=== PATIENT | female | born 1995 | race Caucasian/White ===

== ENCOUNTER 2018-03-10 04:35 | Emergency (ER) | payer OTHER ==
[2018-03-10] MEDS: ACETAMINOPHEN 325 MG TAB PO (07:18)
== END 2018-03-10 08:52 | disposition home or self-care (01) ==
LOC: M ED 04:35
DX: S09.90XA Unspecified injury of head, initial encounter (principal); S40.812A Abrasion of left upper arm, initial encounter; S80.811A Abrasion, right lower leg, initial encounter; Y04.8XXA Assault by other bodily force, initial encounter; Y92.59 Other trade areas as the place of occurrence of the external cause; Y93.9 Activity, unspecified; Y99.9 Unspecified external cause status; Z79.3 Long term (current) use of hormonal contraceptives; Z88.0 Allergy status to penicillin
CPT/HCPCS: 70450

== ENCOUNTER → 2019-05-01 | Outpatient (REF) | payer OTHER ==
[~2019-05-01] MED LIST: BIRTH CONTROL
[2019-05-01 23:01] LABS: CHLAMYDIA DNA AMPLIFICATION NEGATIVE (NEGATIVE); GC DNA AMPLIFICATION POSITIVE (NEGATIVE)
== END ==
LOC: M LAB REF 09:16
PROVIDERS: ATTEND Nurse Practitioner Family
DX: Z11.3 Encounter for screening for infections with a predominantly sexual mode of transmission (principal)

== ENCOUNTER → 2020-06-26 | Outpatient (REF) | payer OTHER ==
[2020-06-26 17:24] LABS: HEMOGLOBIN 12.2 g/dl (12.0-15.5); MEAN CORPUSCULAR HEMOGLOBIN 30.6 pg (27.0-33.0); MEAN CORPUSCULAR HGB CONC 33.9 g/dl (32.0-36.5); MEAN CORPUSCULAR VOLUME 90.2 fl (80.0-96.0); PLATELET COUNT, AUTOMATED 227 10^3/uL (150-450); RED BLOOD COUNT 3.99 10^6/uL (4.00-5.40); WHITE BLOOD COUNT 8.8 10^3/uL (4.0-10.0)
[2020-06-26 18:33] LABS: HEPATITIS C VIRUS ABY INDEX 0.1 INDEX (<0.8); HIV 1&2 SCREEN CENTAUR NEGATIVE (NEGATIVE)
== END ==
LOC: M PLALAB 15:47
PROVIDERS: ATTEND Advanced Practice Midwife
DX: Z34.01 Encounter for supervision of normal first pregnancy, first trimester (principal)

== ENCOUNTER → 2020-06-27 | Outpatient (CLI) | payer OTHER ==
--- NOTE | 2020-07-02 14:58 | REP ---
FIRST TRIMESTER ULTRASOUND HISTORY: Dating. Rule out uterine and ovarian anomaly. TECHNIQUE: Real-time ultrasound evaluation of the pelvis is performed utilizing transabdominal and endovaginal technique. FINDINGS: There is a single live intrauterine with an estimated gestational age of 8 weeks 3 days based on a crown-rump length of 19 mm, estimated date of confinement (EDC) 01/24/2021. heart rate is 174 beats per minute. Gestational sac has somewhat irregular margins. A normal yolk sac is not visualized. There is an irregular echogenic area posterior to the fetus within the amniotic sac, which probably represents an echogenic yolk sac. Some studies have associated this finding with pending nonviability of the fetus. Therefore, a follow-up scan is recommended in 7-14 days. Multiple septations are seen within the gestational sac, some thin and some are somewhat thickened. I suspect this may represent separation of the chorion and amnion with intervening septated fibrin strands possibly from a prior hemorrhage. There is a subchorionic hemorrhage inferior to the gestational sac measuring 1.4 x 2.0 x 1.0 cm. Right ovary measures 4.3 x 3.2 x 2.5 cm. There is a cystic structure in the right ovary 2.5 x 2.2 x 2.0 cm and a hypoechoic structure, which measures 2.0 x 2.2 x 1.0 cm. These likely represent follicles and corpus luteum. Left ovary measures 3.3 x 3.1 x 2.5 cm. Echogenic structure in the left ovary measures 2.3 x 1.9 x 1.8 cm. This probably represents a dermoid. MTDD
== END ==
LOC: M WHC 08:16
PROVIDERS: ATTEND Advanced Practice Midwife
DX: Z34.01 Encounter for supervision of normal first pregnancy, first trimester (principal)

== ENCOUNTER → 2020-07-25 | Outpatient (REF) | payer OTHER | LOC: M SFHCWAGY 17:23 | PROVIDERS: ATTEND Advanced Practice Midwife | DX: Z34.91 Encounter for supervision of normal pregnancy, unspecified, first trimester (principal); Z3A.11 11 weeks gestation of pregnancy ==

== ENCOUNTER → 2020-08-24 | Outpatient (REF) | payer OTHER | LOC: M SFHCWAGY 13:58 | PROVIDERS: ATTEND Advanced Practice Midwife | DX: N39.0 Urinary tract infection, site not specified (principal) ==

== ENCOUNTER → 2020-09-24 | Outpatient (CLI) | payer OTHER ==
--- NOTE | 2020-09-24 11:38 | REP ---
INDICATION: ANATOMY COMPARISON: 06/27/2020 TECHNIQUE: Transabdominal obstetrical ultrasound with color Doppler evaluation. FINDINGS: Examination demonstrates a single live intrauterine in transverse presentation. motion is identified by technologist. Placenta is noted anterior and grade 0 without evidence for placenta previa or abruption. Amniotic fluid volume is normal. Cervix measures 3.1 cm in length and appears closed.. Gestational age by LMP 20 weeks 2 days with ZUHAIR 02/09/2021. Gestational age by current measurements 20 weeks 2 days with ZUHAIR 02/09/2021. FHR equals 153 beats per minute. BPD: 4.8 cm 20 weeks 4 days HC: 18.1 cm 20 weeks 4 days AC: 15.0 cm 20 weeks 2 days FL: 3.2 cm 20 weeks 0 days HL: 3.0 cm 20 weeks 0 days HC/AC: 1.20 Estimated weight 338 grams (40thpercentile). Anatomical assessment demonstrates normal structures including cranium, choroid plexus, cavum, cerebellum/posterior fossa, lungs, four-chamber heart/ventricular outflow tracts, diaphragm, stomach, cord insertion/three-vessel cord, kidneys/bladder, spine, and extremities. IMPRESSION: 1. Single live intrauterine in transverse lie demonstrating appropriate estimated weight and growth. 2. Limited evaluation of the facial features due to positioning. Remainder of the anatomical assessment is complete and normal. <Electronically signed by Ru Ibanez > 09/24/20 [id number]
== END ==
LOC: M WHC 08:49
PROVIDERS: ATTEND Advanced Practice Midwife
DX: Z34.92 Encounter for supervision of normal pregnancy, unspecified, second trimester (principal); Z3A.20 20 weeks gestation of pregnancy

== ENCOUNTER → 2020-10-26 | Outpatient (CLI) | payer OTHER ==
--- NOTE | 2020-10-27 04:12 | REP ---
INDICATION: F/U ANATOMY COMPARISON: 09/24/2020 TECHNIQUE: Transabdominal obstetrical ultrasound with color Doppler evaluation. FINDINGS: Examination demonstrates a single live intrauterine in cephalic presentation. motion is identified by technologist. Placenta is noted anterior and grade 1 without evidence for placenta previa or abruption. Amniotic fluid volume is normal. Cervix measures 3.4 cm in length and appears closed.. Gestational age by LMP 24 weeks 6 days with ZUHAIR 02/09/2021. Gestational age by current measurements 25 weeks 1 day with ZUHAIR 02/07/2021. FHR equals 133 beats per minute. Estimated weight 733 grams (35thpercentile). Anatomical assessment demonstrates normal structures including cranium, facial profile, nose/lips, four-chamber heart, diaphragm, stomach, kidneys/bladder, and three-vessel cord. IMPRESSION: Single live intrauterine in cephalic presentation demonstrating appropriate interval growth. In conjunction with prior examination anatomical assessment is complete and normal. <Electronically signed by Ru Ibanez > 10/27/20 [id number]
== END ==
LOC: M WHC 10:33
PROVIDERS: ATTEND Obstetrics & Gynecology
DX: Z36.89 Encounter for other specified antenatal screening (principal); Z3A.25 25 weeks gestation of pregnancy

== ENCOUNTER → 2020-10-26 | Outpatient (REF) | payer OTHER ==
[2020-10-26 14:10] LABS: HEMATOCRIT 33.3 % (36.0-47.0); MEAN CORPUSCULAR HEMOGLOBIN 30.4 pg (27.0-33.0); PLATELET COUNT, AUTOMATED 218 10^3/uL (150-450); RED BLOOD COUNT 3.62 10^6/uL (4.00-5.40); WHITE BLOOD COUNT 9.6 10^3/uL (4.0-10.0)
== END ==
LOC: M PLALAB 10:24
PROVIDERS: ATTEND Obstetrics & Gynecology
DX: O99.212 Obesity complicating pregnancy, second trimester (principal); Z3A.25 25 weeks gestation of pregnancy; E66.9 Obesity, unspecified

== ENCOUNTER → 2020-11-13 | Outpatient (CLI) | payer OTHER | LOC: M WHC 15:32 | PROVIDERS: ATTEND Obstetrics & Gynecology | DX: Z53.29 Procedure and treatment not carried out because of patient's decision for other reasons (principal); O26.843 Uterine size-date discrepancy, third trimester ==

== ENCOUNTER → 2020-11-30 | Outpatient (CLI) | payer OTHER ==
--- NOTE | 2020-11-30 09:25 | REP ---
INDICATION: UTERINE SIZE-DATE DISCREPANY,GROWTH COMPARISON: 10/26/2020 TECHNIQUE: Transabdominal obstetrical ultrasound with color Doppler evaluation. FINDINGS: Examination demonstrates a single live intrauterine in breech presentation. motion is identified by technologist. Placenta is noted anterior and grade 1 without evidence for placenta previa or abruption. Amniotic fluid volume is normal. Cervix measures 3.4 cm in length and appears closed.. Gestational age by LMP 29 weeks 6 days with ZUHAIR 02/09/2021. Gestational age by current measurements 28 weeks 4 days with ZUHAIR 02/18/2021. Gestational age by 1st ultrasound 31 weeks 2 days with ZUHAIR 01/30/2021 FHR equals 144 beats per minute. BPD: 7.3 cm at 29 weeks 1 day HC: 27.3 cm at 29 weeks 5 days AC: 24.6 cm at 28 weeks 6 days FL: 5.3 cm at 28 weeks 0 days HL: 4.6 cm at 27 weeks 2 days HC/AC: 1.11 Estimated weight 1268 grams (less than 3rdpercentile based on age by LMP and 1st ultrasound). JEFF: 19.9 cm (9.0-23.4) IMPRESSION: Estimated weight is less than expected and below the 3rd percentile based on age by LMP or 1st ultrasound. Correlation is required. <Electronically signed by Ru Ibanez > 11/30/20 [id number]
== END ==
LOC: M WHC 08:07
PROVIDERS: ATTEND Obstetrics & Gynecology
DX: O26.843 Uterine size-date discrepancy, third trimester (principal); Z3A.28 28 weeks gestation of pregnancy

== ENCOUNTER → 2020-12-01 | Outpatient (CLI) | payer OTHER | LOC: M WHC 12:14 | PROVIDERS: ATTEND Obstetrics & Gynecology | DX: O36.5930 Maternal care for other known or suspected poor fetal growth, third trimester, not applicable or unspecified (principal); Z3A.00 Weeks of gestation of pregnancy not specified; Z53.9 Procedure and treatment not carried out, unspecified reason ==

== ENCOUNTER → 2020-12-05 | Outpatient (CLI) | payer OTHER ==
--- NOTE | 2020-12-05 09:06 | REP ---
INDICATION: IUGR,GROWTH,BPP COMPARISON: 11/30/2020 TECHNIQUE: Transabdominal obstetrical ultrasound with color Doppler evaluation. FINDINGS: Examination demonstrates a single live intrauterine in breech presentation. motion is identified by technologist. Placenta is noted anterior and grade 1 without evidence for placenta previa or abruption. Amniotic fluid volume is normal. Cervix measures 3.2 cm in length and appears closed.. Gestational age by LMP 30 weeks 4 days with ZUHAIR 02/09/2021. Gestational age by current measurements 32 weeks 0 days with ZUHAIR 01/30/2021. FHR equals 133 beats per minute. JEFF: 17.3 cm (8.9-23.6) Biophysical profile score: 8/8 Umbilical artery 1 SD ratio: 2.21 (1.93-4.03) Umbilical artery 2 SD ratio: 2.22 IMPRESSION: Single live advanced gestation in breech presentation. Biophysical profile score and amniotic fluid volume normal. <Electronically signed by Ru Ibanez > 12/05/20 0902
== END ==
LOC: M WHC 08:03
PROVIDERS: ATTEND Obstetrics & Gynecology
DX: Z36.2 Encounter for other antenatal screening follow-up (principal); O36.5930 Maternal care for other known or suspected poor fetal growth, third trimester, not applicable or unspecified

== ENCOUNTER → 2020-12-12 | Outpatient (CLI) | payer OTHER ==
--- NOTE | 2020-12-12 12:29 | REP ---
INDICATION: IUGR,GROWTH,BPP. COMPARISON: 12/05/2020. TECHNIQUE: Real-time sonographic evaluation of the gravid uterus performed. FINDINGS: Estimated gestational age is31 weeks 4 days, EDC 02/09/2021. Today's measurements indicate appropriate growth. Presentation: Breech Placenta anterior, grade 1, without evidence of placenta previa. heart rate is recorded at 135 beats per minute. Amniotic fluid is subjectively normal. JEFF 17.4, normal range 8.7-24.0. Biophysical profile score 8/8. Closed cervical length is measured at 3.3 cm. Biometry chart: BPD: 79 mm, 31 weeks 4 days, 50th percentile. HC: 299 mm, 33 weeks 1 days, 74th percentile AC: 274 mm, 31 weeks 3 days, 48th percentile Femur length: 54 mm, 28 weeks 5 days, less than 5th percentile HC to AC ratio: 1.09, Normal range 0.96-1.15. Estimated weight: 1642g, 18th percentile. IMPRESSION: Viable single intrauterine gestation as above. <Electronically signed by Tanvir Rivera > 12/12/20 [id number]
== END ==
LOC: M WHC 10:36
PROVIDERS: ATTEND Obstetrics & Gynecology
DX: O36.5930 Maternal care for other known or suspected poor fetal growth, third trimester, not applicable or unspecified (principal); Z3A.31 31 weeks gestation of pregnancy

== ENCOUNTER → 2020-12-18 | Outpatient (CLI) | payer OTHER ==
--- NOTE | 2020-12-18 11:03 | REP ---
INDICATION: IUGR,BPP,GROWTH COMPARISON: None. TECHNIQUE: Transabdominal obstetrical ultrasound with color Doppler evaluation. FINDINGS: Examination demonstrates a single live intrauterine in breech presentation. motion is identified by technologist. Placenta is noted anterior and grade 1 without evidence for placenta previa or abruption. Amniotic fluid volume is normal. Cervix measures 3.8 cm in length and appears closed. Gestational age by LMP 32 weeks 3 days with ZUHAIR 02/09/2021. Gestational age by 1st ultrasound 33 weeks 6 days with ZUHAIR 01/30/2021. FHR equals 133 beats per minute. JEFF: 18.6 cm (8.5-24.3) Biophysical profile score: 8/8 Umbilical artery 1 SD ratio: 2.40 (1.82-3.83) Umbilical artery 2 SD ratio: 2.87 IMPRESSION: Single live intrauterine in breech presentation. Amniotic fluid index and biophysical profile score are normal. <Electronically signed by Ru Ibanez > 12/18/20 [id number]
== END ==
LOC: M WHC 09:52
PROVIDERS: ATTEND Obstetrics & Gynecology
DX: Z36.2 Encounter for other antenatal screening follow-up (principal); O36.8930 Maternal care for other specified fetal problems, third trimester, not applicable or unspecified; Z3A.33 33 weeks gestation of pregnancy

== ENCOUNTER → 2020-12-24 | Outpatient (CLI) | payer OTHER ==
--- NOTE | 2020-12-24 11:07 | REP ---
INDICATION: BPP/GROWTH COMPARISON: 12/18/2020 TECHNIQUE: Transabdominal obstetrical ultrasound with color Doppler evaluation. FINDINGS: Examination demonstrates a single live intrauterine in breech presentation. motion is identified by technologist. Placenta is noted anterior and grade 2 without evidence for placenta previa or abruption. Amniotic fluid volume is normal. Cervix measures 3.3 cm in length and appears closed. A thin linear bands is identified which may represent synechia. JEFF: 12.9 cm (8.2-24.6) Biophysical profile score: 8/8: Umbilical artery 1 SD ratio: 2.23 (1.77-3.74) Umbilical artery 2 SD ratio: 2.38 (1.77-3.74). Gestational age by LMP 33 weeks 2 days with ZUHAIR 02/09/2021. Gestational age by current measurements 32 weeks 5 days with ZUHAIR 02/13/2021. Gestational age by 1st ultrasound 34 weeks 5 days with ZUHAIR 01/30/2021 FHR equals 132 beats per minute. BPD: 8.2 cm at 32 weeks 6 days HC: 30.5 cm at 34 weeks 0 days AC: 29.5 cm at 33 weeks 4 days FL: 6.0 cm at 31 weeks 2 days HL: 5.5 sent at there is 32 weeks 1 day HC/AC: 1.03 Estimated weight 2069 grams (30thpercentile). IMPRESSION: 1. Single live intrauterine in breech presentation demonstrating appropriate estimated weight. 2. Possible thin synechia <Electronically signed by Ru Ibanez > 12/24/20 1855
== END ==
LOC: M WHC 08:54
PROVIDERS: ATTEND Obstetrics & Gynecology
DX: O36.5930 Maternal care for other known or suspected poor fetal growth, third trimester, not applicable or unspecified (principal); Z3A.32 32 weeks gestation of pregnancy

== ENCOUNTER → 2020-12-28 | Outpatient (REF) | payer OTHER | LOC: M PLALAB 08:05 | PROVIDERS: ATTEND Obstetrics & Gynecology | DX: Z3A.35 35 weeks gestation of pregnancy (principal); Z53.9 Procedure and treatment not carried out, unspecified reason ==

== ENCOUNTER → 2020-12-28 | Outpatient (REF) | payer OTHER | LOC: M SFHCWAGY 13:17 | PROVIDERS: ATTEND Obstetrics & Gynecology | DX: Z36.85 Encounter for antenatal screening for Streptococcus B (principal); Z3A.35 35 weeks gestation of pregnancy ==

== ENCOUNTER → 2021-01-02 | Outpatient (CLI) | payer OTHER ==
--- NOTE | 2021-01-03 08:06 | REP ---
INDICATION: BPP/GROWTH COMPARISON: 12/24/2020 TECHNIQUE: Transabdominal obstetrical ultrasound with color Doppler evaluation. FINDINGS: Examination demonstrates a single live intrauterine in breech presentation. motion is identified by technologist. Placenta is noted anterior and grade 2 without evidence for placenta previa or abruption. Amniotic fluid volume is normal. Cervix measures 3.6 cm in length and appears closed. JEFF: 17.6 cm Biophysical profile score: 8/8 Umbilical artery SD ratio: 2.00, 2.18 (1.64-3.51). Gestational age by 1st ultrasound 36 weeks 0 days with ZUHAIR 01/30/2021. Gestational age by current measurements 33 weeks 5 days with ZUHAIR 02/15/2021. FHR equals 132 beats per minute. Estimated weight 2361 grams (11thpercentile based on age by 1st ultrasound at 36 weeks 0 days; 34th percentile based on age by LMP at 34 weeks 4 days). IMPRESSION: Single live intrauterine in breech presentation demonstrating appropriate estimated weight. Amniotic fluid index and biophysical profile score are normal. <Electronically signed by Ru Ibanez > 01/03/21 [id number]
== END ==
LOC: M WHC 13:44
PROVIDERS: ATTEND Obstetrics & Gynecology
DX: O36.5930 Maternal care for other known or suspected poor fetal growth, third trimester, not applicable or unspecified (principal); O32.1XX0 Maternal care for breech presentation, not applicable or unspecified; Z3A.36 36 weeks gestation of pregnancy

== ENCOUNTER → 2021-01-09 | Outpatient (CLI) | payer OTHER ==
--- NOTE | 2021-01-09 14:35 | REP ---
INDICATION: BPP/GROWTH. COMPARISON: None. TECHNIQUE: Limited obstetric sonography transabdominal scanning. FINDINGS: Limited Ob sonography demonstrates a single intrauterine living gestation, breech lie. heart rate is recorded at 119 beats per minute. Placenta is anterior grade 2 without evidence of previa. Amniotic fluid is subjectively normal. JEFF is normal 19.1 cm. Biophysical profile score is 8 out of a possible 8. Closed cervical length is 3.4 cm. IMPRESSION: Limited obstetric sonography as above. <Electronically signed by Jake Fraire > 01/09/21 1239
== END ==
LOC: M WHC 13:58
PROVIDERS: ATTEND Obstetrics & Gynecology
DX: O36.5930 Maternal care for other known or suspected poor fetal growth, third trimester, not applicable or unspecified (principal)

== ENCOUNTER → 2021-01-16 | Outpatient (CLI) | payer OTHER ==
[~2021-01-16] MED LIST changes: +IBUP80TA PO; +OXYC1TAB23 PO; +PRENTAB9 PO
--- NOTE | 2021-01-16 14:55 | REP ---
INDICATION: IUGR,GROWTH,BPP. COMPARISON: 01/09/2021. TECHNIQUE: Real-time sonographic evaluation of the gravid uterus performed. FINDINGS: Estimated gestational age is38 weeks 0 days, EDC 01/30/2021. Today's measurements indicate less than expected growth with regard to the abdomen. This is suggestive of asymmetric IUGR. Presentation: Breech Placenta anterior, grade 2, without evidence of placenta previa. heart rate is recorded at 127 beats per minute. Amniotic fluid is subjectively normal. JEFF 14.8, normal 7.3-23.9. Biophysical profile score 8/8. SD ratio umbilical artery 2.87, normal 1.55-3.36. RI 0.65, normal 0.42-0.70. SD ratio middle cerebral artery 7.01, RI 0.86. Biometry chart: BPD: 92 mm, 37 weeks 1 days, 38th percentile. HC: 343 mm, 39 weeks 4 days, 76th percentile AC: 302 mm, 34 weeks 1 days, less than 5th percentile Femur length: 62 mm, 32 weeks 2 days, less than 5th percentile HC to AC ratio: 1.13, normal range 0.90-1.09.. Estimated weight: 2438g, less than 3rd percentile. IMPRESSION: Viable single intrauterine gestation as above. Findings suggestive of asymmetric IUGR. <Electronically signed by Tanvir Rivera > 01/16/21 2243
== END ==
LOC: M WHC 13:56
PROVIDERS: ATTEND Obstetrics & Gynecology
DX: O36.5930 Maternal care for other known or suspected poor fetal growth, third trimester, not applicable or unspecified (principal); Z3A.38 38 weeks gestation of pregnancy

== ENCOUNTER 2021-01-17 19:28 | Inpatient (IN) | payer OTHER ==
[~2021-01-17] VITALS: Ht 170.2 cm; Wt 121.7 kg
[~2021-01-17 19:28] MED LIST changes: -IBUP80TA PO; -OXYC1TAB23 PO; -PRENTAB9 PO
[2021-01-17 19:58] VITALS: BP 131/74
[2021-01-17] MEDS ORDERED: PRENTAB9 PO (20:01)
[2021-01-17] MEDS ORDERED: LACTATED RINGER'S 1000 ML IV STA (20:38)
[2021-01-17] MEDS ORDERED: ceFAZolin SOD 2 GM in IV 1 EA IV ONE (20:40)
[2021-01-17] MEDS ORDERED: BICITRA 30ML SOLN UDC PO ONE (20:40)
[2021-01-17] MEDS ORDERED: LR 1,000 ML IV SCH (20:40)
[2021-01-17 20:53] VITALS: BP 129/59
[2021-01-17 21:07] LABS: HEMATOCRIT 33.2 % (36.0-47.0); HEMOGLOBIN 11.1 g/dl (12.0-15.5); MEAN CORPUSCULAR HEMOGLOBIN 29.2 pg (27.0-33.0); MEAN CORPUSCULAR HGB CONC 33.4 g/dl (32.0-36.5); MEAN CORPUSCULAR VOLUME 87.4 fl (80.0-96.0); PLATELET COUNT, AUTOMATED 249 10^3/uL (150-450); WHITE BLOOD COUNT 13.4 10^3/uL (4.0-10.0)
--- NOTE | 2021-01-17 21:11 | HPEPDOC ---
Obstetrical History & Physical General Date of Admission Jan 17, 2021 at 19:28 History of Present Illness 25 yo G1 at 38 1/7 weeks by LMP c/w 8 weeks ultrasound (EDC=01/30/2021) presents to triage afater an ultrasound showed severe IUGR (<3%). Fetus is known to be in the breech presentation. No contractions. good movement. Information Provided By: Patient Age: 25 : 1 Term: 0 Pre-term: 0 Abortions: 0 Livin Care Care: Good Care Dating Final EDC by: LMP, 1st trimester (US) Antepartum Course Diagnos(e)s IUGR Past Medical History Past Obstetrical History : Past Obstetrical History: Primgravida Past Medical History Medical History med hx: gonorrhea surgical hx: knee surgery tonsillectomy Family History Significant Family History: No pertinent family hx Social History Marital Status: Single Family situation: Spouse/partner home Psychosocial History: No pertinent psych hx Allergies Coded Allergies: amoxicillin (Verified Allergy, Intermediate, RASH, 01/17/21) clavulanic acid (Verified Allergy, Intermediate, RASH, 01/17/21) Medications Scheduled No.137/Iron/Folic Acd ( Vitamin Tablet) 1 Each Tablet, 1 TAB PO DAILY Miscellaneous Medications [ Control] Physical Examination Physical Examination GENERAL: Alert and oriented times three. BREAST: . ABDOMEN: Gravid and non-tender to touch. FETUS: Is vertex (VTX) by sterile vaginal examination (SVE), fetus is vertex (VTX) by Rufus. HEART RATE: Regular rate and rhythm. LUNGS: Clear to auscultation (CTA). EXTREMITIES: No edema. No clonus. Deep tendon reflexes (DTRs) + . Laboratory Data 24H LABS Laboratory Tests 2 01/17/21 19:38: Serology Scanned Report Hepatitis B Testing 01/17/21 20:38: CBC/BMP Pertinent Laboratoy Data Group B Streptococcus: Negative Assessment Variability: Moderate Accelerations: Positive Decelerations: None Tocometer Contractions: No Assessment/Plan Assessment Pt is a 25-year-old (G)1 para (P)0 at 38+1 weeks by LMP c/w 8-week u ltrasound presents to Labor and Delivery with breech presentation, severe IUGR. Plan Admit and orient. Health Technician Hearing and consent. Diet: NPO. Plan for breech presentation with severe IUGR consent signed. ANDRES HOFFMAN MD Jan 17, 2021 21:11
[2021-01-17 21:15] VITALS: BP 118/61
[2021-01-17] MEDS ORDERED: diphenhydrAMINE 50MG/ML VIAL (J1200) IV PRN (21:40)
[2021-01-17] MEDS ORDERED: ONDANSETRON 4MG/2ML VIAL IV PRN ×3 (21:40→22:40)
[2021-01-17] MEDS ORDERED: NALOXONE INJ 0.4MG/1ML VIAL (J2310 PER 1MG) IV PRN ×2 (21:40)
[2021-01-17] MEDS ORDERED: NALBUPHINE HCL 10 MG/ML AMP (J2300) IV PRN ×2 (21:40→22:30)
[2021-01-17] MEDS ORDERED: MORPHINE PRES-FREE INJ 10 MG/10 ML VIAL (J2274) As Ordered ONE (21:49)
[2021-01-17] MEDS ORDERED: PHENYLephrine 500MCG 5ML (100MCG/ML) SYRINGE As Ordered ONE ×2 (21:49→22:17)
[2021-01-17] MEDS ORDERED: OXYTOCIN INJ 10 UNITS/ML VIAL (J2590) As Ordered ONE (21:49)
[2021-01-17] MEDS ORDERED: ONDANSETRON 4MG/2ML VIAL As Ordered ONE ×2 (22:03→23:48)
[2021-01-17 22:24] LABS: CORD GAS ABE A -2.3; CORD GAS HCO3 A 21.7 MEQ/L; CORD GAS O2 SAT A 48.4 %; CORD GAS PCO2 A 34.9 mmHg; CORD GAS PH A 7.412 UNITS; CORD GAS PO2 A 20.2 mmHg; CORD GAS SBC A 21.5 MEQ/L; CORD GAS TCO2 A 22.8 MEQ/L
[2021-01-17 22:27] LABS: CORD GAS ABE V -1.7; CORD GAS HCO3 V 22.3 MEQ/L; CORD GAS O2 SAT V 43.6 %; CORD GAS PCO2 V 35.6 mmHg; CORD GAS PH V 7.415 UNITS; CORD GAS PO2 V 17.6 mmHg; CORD GAS SBC V 21.9 MEQ/L; CORD GAS TCO2 V 23.4 MEQ/L
[2021-01-17] MEDS ORDERED: MEPERIDINE INJ 25 MG/ML VIAL (J2175) IV PRN (22:30)
[2021-01-17] MEDS ORDERED: oxyCODONE 5MG TAB PO PRN (22:30)
[2021-01-17] MEDS ORDERED: fentaNYL 100 MCG/2 ML INJECTION (J3010) IV PRN (22:30)
[2021-01-17] MEDS ORDERED: KETOROLAC 30 MG/ML 1ML VIAL IV PRN (22:30)
[2021-01-17] MEDS ORDERED: HYDROMORPHONE HCL 0.5 MG/ 0.5 ML SYRINGE (J1170 PER 1) IV PRN (22:30)
[2021-01-17] MEDS ORDERED: DOCUSATE SODIUM 100MG CAPSULE PO PRN (22:40)
[2021-01-17] MEDS ORDERED: OXYTOCIN DRIP 30 UNITS in IV 1 EA IV SCH (22:40)
[2021-01-17] MEDS ORDERED: RHOGAM 300 MCG (1500 IU) INJ (J2790) IM SCH (22:40)
[2021-01-17] MEDS ORDERED: MEASLES,MUMPS,RUBELLA VACCINE INJ (MMR-II) (90707) SC SCH (22:40)
[2021-01-17] MEDS: LR 1,000 ML IV SCH (22:40)
[2021-01-17] MEDS ORDERED: PERCOCET 5MG/325MG TAB PO PRN (22:40)
--- NOTE | 2021-01-17 22:44 | ROOPDOC ---
[facility] Report Of Operation Report of Operation DATE OF PROCEDURE: 01/17/21 Report of operation Preoperative diagnosis: 38 1/7 weeks, breech, severe IUGR Postoperative diagnosis: same Procedure: Primary low transverse section Surgeon: Andres Hoffman M.D. EBL: 500 ml. Urine output: 100 mL's. Findings: 6 lbs. 5 oz. female , 's 8 and 9 g, kristian breech, normal uterus, fallopian tubes, ovaries. Operative summary: Patient taken to the operating room where spinal anesthesia was induced. She was prepped draped in a sterile fashion in the supine position. A Mancera catheter was placed. A Pfannenstiel skin incision was made with scalpel. Fascia was incised and extended bilaterally. The peritoneal cavity was entered. A Mobius retractor was placed. A bladder flap was created. A curvilinear incision was made in lower uterine segment until Clear fluid was noted. The incision was extended manually. The was delivered from the breech position without difficulty. Cord was doubly clamped and cut. The infant was handed to awaiting nurses. . The placenta was expressed. Uterus was closed with O-Vicryl in a running locked fashion. A second imbricating layer of Vicryl was placed. Peritoneum was closed with 2-0 Vicryl a running fashion. Fascia was closed with 0 Vicryl in running fashion. Skin was closed 4-0 Monocryl subcuticular sutures. Sponge, instrument and needle counts were correct. ANDRES HOFFMAN MD Jan 17, 2021 22:44
[2021-01-17] MEDS ORDERED: OXYC1TAB23 PO (22:45)
[2021-01-17] MEDS ORDERED: IBUP80TA PO (22:49)
[2021-01-17] MEDS ORDERED: OXYTOCIN 30 UNITS IN 0.9% NaCl 500ML IV BAG (J2590) As Ordered ONE (22:58)
[2021-01-17] MEDS ORDERED: KETOROLAC 30 MG/ML 1ML VIAL As Ordered ONE (22:58)
[2021-01-17] MEDS ORDERED: KETOROLAC 30 MG/ML 1ML VIAL IV SCH (23:00)
[2021-01-18] VITALS (10 sets, daily range): BP systolic 97–131; BP diastolic 54–65
[2021-01-18] MEDS ORDERED: METOCLOPRAMIDE INJ 10MG/2ML VIAL (J2765 PER 1) IV PRN (00:55)
[2021-01-18] MEDS: METOCLOPRAMIDE INJ 10MG/2ML VIAL (J2765 PER 1) IV PRN ×2 (01:13→09:02)
[2021-01-18] MEDS ORDERED: LR 500 ML IV ONE ×2 (04:45→10:30)
[2021-01-18] MEDS: KETOROLAC 30 MG/ML 1ML VIAL IV SCH ×3 (04:58→17:05)
[2021-01-18] MEDS: LR 1,000 ML IV SCH (06:19)
[2021-01-18] MEDS: PRENATAL VITAMINS CHEWABLE TABLET PO SCH (09:02)
[2021-01-18 09:03] LABS: HEMATOCRIT 30.8 % (36.0-47.0); HEMOGLOBIN 10.2 g/dl (12.0-15.5); MEAN CORPUSCULAR HEMOGLOBIN 29.7 pg (27.0-33.0); MEAN CORPUSCULAR HGB CONC 33.1 g/dl (32.0-36.5); MEAN CORPUSCULAR VOLUME 89.5 fl (80.0-96.0); PLATELET COUNT, AUTOMATED 212 10^3/uL (150-450); RED BLOOD COUNT 3.44 10^6/uL (4.00-5.40); WHITE BLOOD COUNT 11.5 10^3/uL (4.0-10.0)
[2021-01-19] MEDS: IBUPROFEN 800 MG TAB PO SCH ×3 (01:41→17:20)
[2021-01-19 02:00] VITALS: BP 130/67
[2021-01-19 05:53] VITALS: BP 122/55
--- NOTE | 2021-01-19 07:07 | IPNPDOC ---
Text Note Date of Service The patient was seen on 01/19/21. NOTE PO #2 Feels well. Adequate pain management. . Voiding, passing flatus VSS, afebrile, normotensive Breasts soft, nipples intact Fundus firm, NT Dressing intact with scant old drainage Lochia rubra light without odor PO #2 Routine care. Consider discharge later today or tomorrow VS,Fishbone, I+O VS, Fishbone, I+O Laboratory Tests 01/18/21 08:43 Vital Signs Date Time Temp Pulse Resp B/P (MAP) Pulse Ox O2 Delivery O2 Flow Rate FiO2 01/19/21 05:53 97.9 71 18 122/55 (77) 01/18/21 21:53 Room Air 01/18/21 13:57 99 I&O- Last 24 Hours up to 6 AM 01/19/21 06:00 Intake Total 3740 ml Output Total 2475 ml Balance 1265 ml Zoë Courtney CNM January 19, 2021 07:07
[2021-01-19] MEDS: PRENATAL VITAMINS CHEWABLE TABLET PO SCH (09:06)
[2021-01-19] MEDS: SIMETHICONE 80MG CHEW TAB PO PRN ×2 (09:06→17:20)
[2021-01-19 10:00] VITALS: BP 128/80
[2021-01-19] MEDS: PERCOCET 5MG/325MG TAB PO PRN ×2 (13:12→21:34)
[2021-01-19 14:00] VITALS: BP 114/64
[2021-01-19 17:45] VITALS: BP 125/72
[2021-01-20] MEDS: SIMETHICONE 80MG CHEW TAB PO PRN (01:09)
[2021-01-20] MEDS: IBUPROFEN 800 MG TAB PO SCH ×2 (01:09→08:21)
[2021-01-20] MEDS: PERCOCET 5MG/325MG TAB PO PRN (05:11)
[2021-01-20 05:58] VITALS: BP 129/75
[2021-01-20] MEDS: PRENATAL VITAMINS CHEWABLE TABLET PO SCH (08:21)
--- NOTE | 2021-01-20 08:26 | DS.PDOC ---
Discharge Summary General Date of Admission Jan 17, 2021 at 19:28 Date of Discharge 01/20/21 Discharge Summary DATE OF ADMISSION: 01/17/2021 DATE OF DISCHARGE: 01/20/2021 ADMISSION DIAGNOSIS:, 38 weeks gestation. growth restriction, breech presentation DISCHARGE DIAGNOSIS: Is post primary low transverse section DISCHARGE SUMMARY: The patient was admitted at 38 weeks gestation with a diagnosis of growth restriction and malpresentation/breech. This prompted a scheduled delivery. The section delivery was uncomplicated. Her postoperative course was uncomplicated as well. On postoperative day #3, she was meeting all discharge criteria. PHYSICAL EXAMINATION ON DATE OF DISCHARGE: Normotensive. Normal heart rate. Afebrile. HEART: Regular rate and rhythm. No murmurs, gallops, or rubs. LUNGS: Clear to auscultation bilaterally. ABDOMEN: Soft, nontender, nondistended. Incision bandage clean and dry. EXTREMITIES: Nonedematous, nontender. She was meeting all discharge criteria on postoperative day #3. We reviewed routine fever, infectious, pain, and bleeding precautions. She is to followup in 2 weeks for incision check. Her postoperative medications are Percocet, Motrin, and Colace. Vital Signs/I&Os Vital Signs Date Time Temp Pulse Resp B/P (MAP) Pulse Ox O2 Delivery O2 Flow Rate FiO2 01/20/21 05:58 97.6 72 18 129/75 (93) 01/20/21 05:41 Room Air 01/19/21 17:45 98 Discharge Medications Scheduled Ibuprofen (Ibuprofen) 800 Mg Tablet, 800 MG PO Q8H No.137/Iron/Folic Acd ( Vitamin Tablet) 1 Each Tablet, 1 TAB PO DAILY, (Reported) Scheduled PRN Oxycodone HCl/Acetaminophen (Oxycodone-Acetaminophen 5-325) 1 Each Tablet, 1 TAB PO TIDP PRN for pain Miscellaneous Medications [ Control] , (Reported) Allergies Coded Allergies: amoxicillin (Verified Allergy, Intermediate, RASH, 01/17/21) clavulanic acid (Verified Allergy, Intermediate, RASH, 01/17/21) JEREMY SCALES DO January 20, 2021 08:26
== END 2021-01-20 11:55 | disposition home or self-care (01) | DRG 540 ==
LOC: M LDI 19:28 → M OBS 01-18 00:49
PROVIDERS: ADMIT Obstetrics & Gynecology; ATTEND Obstetrics & Gynecology
PROC: 10D00Z1 Extraction of Products of Conception, Low, Open Approach (ICD-10-PCS; principal; 2021-01-17 21:30)
DX: O32.1XX0 Maternal care for breech presentation, not applicable or unspecified (principal); O36.5990 Maternal care for other known or suspected poor fetal growth, unspecified trimester, not applicable or unspecified; Z37.0 Single live birth; Z3A.38 38 weeks gestation of pregnancy; Z88.0 Allergy status to penicillin; Z88.8 Allergy status to other drugs, medicaments and biological substances

== ENCOUNTER 2021-04-26 12:59 | Emergency (ER) | payer OTHER ==
[~2021-04-26] VITALS: Ht 170.2 cm; Wt 122.9 kg
[2021-04-26 15:10] LABS: BASO % 0.4 % (0.0-1.0); EOS # 0.1 10^3/uL (0.0-0.5); HEMATOCRIT 40.4 % (36.0-47.0); HEMOGLOBIN 12.9 g/dl (12.0-15.5); LYMPH # 2.6 10^3/uL (1.5-5.0); LYMPH % 25.9 % (24.0-44.0); MEAN CORPUSCULAR HEMOGLOBIN 28.1 pg (27.0-33.0); MEAN CORPUSCULAR HGB CONC 31.9 g/dl (32.0-36.5); MONO # 0.6 10^3/uL (0.0-0.8); MONO % 6.1 % (2.0-8.0); NEUTROPHILS # 6.6 10^3/uL (1.5-8.5); NEUTROPHILS % 66.2 % (36.0-66.0); PLATELET COUNT, AUTOMATED 302 10^3/uL (150-450); RED BLOOD COUNT 4.59 10^6/uL (4.00-5.40)
[2021-04-26 15:29] LABS: BLOOD UREA NITROGEN 12 MG/DL (7-18); CALCIUM LEVEL 9.1 MG/DL (8.5-10.1); CARBON DIOXIDE LEVEL 24 MEQ/L (21-32); CHLORIDE LEVEL 110 MEQ/L (98-107); GLOMERULAR FILTRATION RATE > 60.0 (>60); GLUCOSE, FASTING 84 MG/DL (70-100); HCG, SERUM QUANTITATIVE 520 MIU/ML; SODIUM LEVEL 140 MEQ/L (136-145)
--- NOTE | 2021-04-26 16:06 | REP ---
INDICATION: vaginal bleeding, approximate 6 weeks . COMPARISON: 06/27/2020. TECHNIQUE: Real-time sonographic evaluation of pelvis performed utilizing transabdominal and endovaginal technique. FINDINGS: Uterus measures 10.9 x 4.3 x 5.5 cm. Endometrial thickness is 13 mm. There is no gestational sac in the endometrial canal. Nonspecific fluid is seen in the lower uterine segment.. The right ovary measures 4.0 x 2.6 x 4.0 cm. There is a simple cystic structure in the right ovary which may represent a corpus luteum 2.3 cm in diameter. Left ovary measures 3.3 x 3.1 x 2.9 cm and contains a hyperechoic structure which may represent a dermoid, 2.5 x 2.3 x 1.9 cm. This is similar to the prior study of 06/27/2020. Blood flow seen in each ovary with duplex Doppler evaluation. No free fluid is seen. IMPRESSION: Mild nonspecific fluid in the lower uterine segment. No well-defined gestational sac seen in the endometrial canal. Simple cystic structure right ovary 2.3 cm. Hyperechoic nodule left ovary 2.5 cm may represent dermoid. No torsion or free fluid. Given the beta HCG value of 520, differential diagnosis would include very early intrauterine , missed AB, or ectopic . Suggest correlation with serial quantitative beta HCG values, and follow-up ultrasound if necessary. <Electronically signed by Tanvir Rivera > 04/26/21 1508
[2021-04-26 17:42] VITALS: BP 155/76
== END 2021-04-26 17:43 | disposition home or self-care (01) ==
LOC: M ED 12:59
DX: O20.0 Threatened abortion (principal); O34.81 Maternal care for other abnormalities of pelvic organs, first trimester; Z3A.00 Weeks of gestation of pregnancy not specified; Z79.3 Long term (current) use of hormonal contraceptives; Z79.899 Other long term (current) drug therapy; Z88.0 Allergy status to penicillin

== ENCOUNTER → 2021-04-26 | Outpatient (CLI) | payer OTHER ==
[~2021-04-26] MED LIST changes: +IBUP80TA PO; +OXYC1TAB23 PO; +PRENTAB9 PO
== END ==
LOC: M PLALAB 11:45
PROVIDERS: ATTEND Advanced Practice Midwife
DX: O26.851 Spotting complicating pregnancy, first trimester (principal)

== ENCOUNTER → 2021-04-29 | Outpatient (CLI) | payer OTHER | LOC: M LAB 10:02 | PROVIDERS: ATTEND Physician Assistant Medical | DX: O20.0 Threatened abortion (principal) ==

== ENCOUNTER → 2021-07-17 | Outpatient (CLI) | payer OTHER ==
[2021-07-17 13:55] LABS: BASO % 0.4 % (0.0-1.0); EOS # 0.2 10^3/uL (0.0-0.5); EOS % 2.2 % (0.0-3.0); HEMATOCRIT 35.1 % (36.0-47.0); HEMOGLOBIN 11.5 g/dl (12.0-15.5); LYMPH # 2.3 10^3/uL (1.5-5.0); LYMPH % 29.9 % (24.0-44.0); MEAN CORPUSCULAR HEMOGLOBIN 27.9 pg (27.0-33.0); MEAN CORPUSCULAR HGB CONC 32.8 g/dl (32.0-36.5); MEAN CORPUSCULAR VOLUME 85.2 fl (80.0-96.0); MONO # 0.7 10^3/uL (0.0-0.8); MONO % 8.6 % (2.0-8.0); NEUTROPHILS # 4.4 10^3/uL (1.5-8.5); NEUTROPHILS % 58.4 % (36.0-66.0); PLATELET COUNT, AUTOMATED 266 10^3/uL (150-450); RED BLOOD COUNT 4.12 10^6/uL (4.00-5.40); WHITE BLOOD COUNT 7.6 10^3/uL (4.0-10.0)
[2021-07-17 15:06] LABS: HEPATITIS C VIRUS ABY INDEX < 0.0 INDEX (<0.8); HIV 1&2 SCREEN CENTAUR NEGATIVE (NEGATIVE)
[2021-07-17 16:04] LABS: GC DNA AMPLIFICATION NEGATIVE (NEGATIVE)
== END ==
LOC: M PLALAB 08:53
PROVIDERS: ATTEND Specialist
DX: Z34.81 Encounter for supervision of other normal pregnancy, first trimester (principal)

== ENCOUNTER → 2021-09-19 | Outpatient (CLI) | payer OTHER ==
--- NOTE | 2021-09-19 12:46 | REP ---
INDICATION: ANATOMY. COMPARISON: None. TECHNIQUE: Transabdominal scanning FINDINGS: Multiple ultrasonographic images of the gravid uterus shows a single living intrauterine gestation in the breech presentation. Doppler interrogation of the heart shows a heart rate of 149 beats per minute. The placenta is posterior and not low-lying. The cervix measures 4.8 cm in length and is closed. The subjective amniotic fluid volume is within normal limits. BPD: 4.7 cm 20 weeks 1 day HC: 17.7 cm 20 weeks 1 day AC: 15.6 cm 20 weeks 5 days FL: 3.1 cm 19 weeks 4 days The estimated weight is 336 g which is at the 55th percentile. anatomical structures seen to be unremarkable are as follows: Thalami, cavum septum pellucidum, cerebellum, cisterna magna, cerebral ventricles, spine, kidneys, urinary bladder, cord insertion, three-vessel umbilical cord, stomach, and extremities. Structures suboptimally visualized are as follows upper lip, four-chamber heart, and ventricular outflow tracks. IMPRESSION: Single living intrauterine gestation as described above with an estimated gestational age of 20 weeks 1 day via composite criteria and an estimated date of delivery of 02/05/2022 by today's exam. No anomalies were detected, however, recommend a follow-up examination to optimally visualize the upper lip, four-chamber heart, and ventricular outflow tracks. <Electronically signed by Deon Camacho > 09/19/21 [id number]
== END ==
LOC: M WHC 11:01
PROVIDERS: ATTEND Obstetrics & Gynecology
DX: O34.211 Maternal care for low transverse scar from previous cesarean delivery (principal); Z3A.20 20 weeks gestation of pregnancy; O32.1XX0 Maternal care for breech presentation, not applicable or unspecified

== ENCOUNTER → 2021-11-01 | Outpatient (CLI) | payer OTHER | LOC: M WHC 08:55 | PROVIDERS: ATTEND Specialist | DX: Z34.82 Encounter for supervision of other normal pregnancy, second trimester (principal); Z36.89 Encounter for other specified antenatal screening; Z3A.26 26 weeks gestation of pregnancy ==

== ENCOUNTER → 2021-11-15 | Outpatient (CLI) | payer OTHER ==
[2021-11-15 17:16] LABS: HEMATOCRIT 34.7 % (36.0-47.0); HEMOGLOBIN 11.2 g/dl (12.0-15.5); MEAN CORPUSCULAR HEMOGLOBIN 28.5 pg (27.0-33.0); MEAN CORPUSCULAR HGB CONC 32.3 g/dl (32.0-36.5); MEAN CORPUSCULAR VOLUME 88.3 fl (80.0-96.0); PLATELET COUNT, AUTOMATED 284 10^3/uL (150-450); RED BLOOD COUNT 3.93 10^6/uL (4.00-5.40); WHITE BLOOD COUNT 12.2 10^3/uL (4.0-10.0)
[2021-11-15 19:07] LABS: GC DNA AMPLIFICATION NEGATIVE (NEGATIVE)
== END ==
LOC: M PLALAB 11:17
PROVIDERS: ATTEND Specialist
DX: Z34.82 Encounter for supervision of other normal pregnancy, second trimester (principal); Z3A.00 Weeks of gestation of pregnancy not specified

== ENCOUNTER → 2021-12-16 | Outpatient (CLI) | payer OTHER | LOC: M WHC 08:51 | PROVIDERS: ATTEND Specialist | DX: Z34.83 Encounter for supervision of other normal pregnancy, third trimester (principal); Z3A.32 32 weeks gestation of pregnancy | CPT/HCPCS: 76816; 76820; 90471; 90715; G0463 ==